=== PATIENT | male | born 1945 | race Caucasian/White ===

== ENCOUNTER → 2019-04-29 10:29 | Outpatient (BNVA) | payer BC, SELFPAY | PROVIDERS: Family Provider Family Medicine; PCP Family Medicine; Visit Provider Family Medicine | DX: Z01.818 Encounter for other preprocedural examination (principal) | CPT/HCPCS: 71046; 80053; 85025; 87070 ==

== ENCOUNTER → 2019-05-15 13:45 | Outpatient (BNVA) | payer BC, SELFPAY | PROVIDERS: Family Provider Family Medicine; PCP Family Medicine; Visit Provider Anesthesiology | DX: M48.061 Spinal stenosis, lumbar region without neurogenic claudication (principal); M47.24 Other spondylosis with radiculopathy, thoracic region; M51.34 Other intervertebral disc degeneration, thoracic region; M96.1 Postlaminectomy syndrome, not elsewhere classified; Z79.891 Long term (current) use of opiate analgesic | CPT/HCPCS: 99214 ==

== ENCOUNTER → 2019-06-24 13:55 | Outpatient (BNVA) | payer BC, SELFPAY | PROVIDERS: Family Provider Family Medicine; PCP Family Medicine; Visit Provider Nurse Practitioner | DX: M48.061 Spinal stenosis, lumbar region without neurogenic claudication (principal); M54.9 Dorsalgia, unspecified; Z79.891 Long term (current) use of opiate analgesic | CPT/HCPCS: 99215 ==

== ENCOUNTER → 2019-07-22 10:45 | Outpatient (BNVA) | payer BC, SELFPAY | PROVIDERS: Family Provider Family Medicine; PCP Family Medicine; Visit Provider Anesthesiology | DX: M48.061 Spinal stenosis, lumbar region without neurogenic claudication (principal); M51.34 Other intervertebral disc degeneration, thoracic region; M47.24 Other spondylosis with radiculopathy, thoracic region; M96.1 Postlaminectomy syndrome, not elsewhere classified; Z79.891 Long term (current) use of opiate analgesic | CPT/HCPCS: 99214 ==

== ENCOUNTER 2019-08-05 06:00 | Outpatient (RCR) | payer BC, SELFPAY | END 2019-08-20 23:59 | disposition home or self-care (01) | LOC: GPT 06:00 | PROVIDERS: Family Provider Family Medicine; PCP Family Medicine; Referring Provider Family Medicine; Visit Provider Family Medicine | DX: M54.5 Low back pain (principal) | CPT/HCPCS: 97032; 97110; 97140; 97161; 97530 ==

== ENCOUNTER 2019-08-21 06:00 | Outpatient (RCR) | payer BC, SELFPAY | END 2019-09-20 23:59 | disposition home or self-care (01) | LOC: GPT 06:00 | PROVIDERS: Family Provider Family Medicine; PCP Family Medicine; Referring Provider Family Medicine; Visit Provider Family Medicine | DX: M54.5 Low back pain (principal) | CPT/HCPCS: 97110; 97112; 97140 ==

== ENCOUNTER → 2020-05-20 16:43 | Outpatient (BNVA) | payer BC, SELFPAY | PROVIDERS: PCP Family Medicine; Visit Provider Nurse Practitioner Family | DX: Z20.828 Contact with and (suspected) exposure to other viral communicable diseases (principal) | CPT/HCPCS: 87635 ==

== ENCOUNTER → 2020-10-07 08:45 | Outpatient (BNVA) | payer BC, SELFPAY | PROVIDERS: PCP Family Medicine; Visit Provider Nurse Practitioner Family | DX: N40.1 Benign prostatic hyperplasia with lower urinary tract symptoms (principal) | CPT/HCPCS: 84153 ==

== ENCOUNTER → 2020-10-20 07:53 | Outpatient (BNVA) | payer BC, SELFPAY | PROVIDERS: PCP Family Medicine; Visit Provider Family Medicine | DX: B18.2 Chronic viral hepatitis C (principal); I10 Essential (primary) hypertension; M47.24 Other spondylosis with radiculopathy, thoracic region; N40.0 Benign prostatic hyperplasia without lower urinary tract symptoms | CPT/HCPCS: 80053; 80061; 84439; 84443; 85025 ==

== ENCOUNTER → 2021-10-06 09:33 | Outpatient (BNVA) | payer BC, SELFPAY | PROVIDERS: PCP Family Medicine; Visit Provider Dermatology | DX: N40.0 Benign prostatic hyperplasia without lower urinary tract symptoms (principal) | CPT/HCPCS: 84153 ==

== ENCOUNTER → 2021-12-01 08:49 | Outpatient (BNVA) | payer BC, SELFPAY | PROVIDERS: PCP Family Medicine; Visit Provider Nurse Practitioner Family | DX: I10 Essential (primary) hypertension (principal); N40.0 Benign prostatic hyperplasia without lower urinary tract symptoms | CPT/HCPCS: 80053; 80061; 84153; 84443; 85025 ==

== ENCOUNTER → 2022-09-20 11:04 | Outpatient (BNVA) | payer OTHER, SELFPAY | PROVIDERS: PCP Family Medicine; Visit Provider Nurse Practitioner Family | DX: I10 Essential (primary) hypertension (principal); N52.9 Male erectile dysfunction, unspecified; Z68.27 Body mass index [BMI] 27.0-27.9, adult | CPT/HCPCS: 80053; 80061 ==

== ENCOUNTER → 2022-10-02 13:50 | Outpatient (BNVA) | payer OTHER, SELFPAY | PROVIDERS: PCP Family Medicine; Visit Provider Dermatology | DX: Z01.89 Encounter for other specified special examinations (principal) ==

== ENCOUNTER → 2022-10-11 13:30 | Outpatient (BNVA) | payer OTHER, SELFPAY | PROVIDERS: PCP Family Medicine; Visit Provider Nurse Practitioner Family | DX: N23 Unspecified renal colic (principal) | CPT/HCPCS: 81000 ==

== ENCOUNTER 2022-11-10 22:32 | Emergency (ER) | payer OTHER, SELFPAY ==
[2022-11-10 22:43] VITALS: BP 187/82; PULSE 69; RESP 18; TEMP 36.6; O2SAT 98; BMI 27.1
--- NOTE | 2022-11-10 22:56 | W.ED.ANIMALB ---
HPI - Animal Bite General: Chief Complaint: Animal Bite Stated Complaint: LAC on Foot Time Seen by Provider: 11/10/22 22:35 History of Present Illness: 77-year-old male patient comes in today for complaints of injury to the right foot. Patient was walking across the floor when the dog accidentally bit him on the top of the right foot after he excellently stepped on the dog. Patient appears nontoxic. Patient reports the animals that shots are up-to-date. Patient has a V-shaped laceration to the dorsal right foot approximately 3 cm. Review of Systems General: Reports: 10 or more systems reviewed and unremarkable except in HPI and below Musc: Reports: extremity pain Skin/Breast: Reports: new lesions PFS ED PFSH: Medical History BPH (benign prostatic hyperplasia) Chronic cholecystitis with calculus Chronic hepatitis C Encounter for long-term opiate analgesic use History of nonmelanoma skin cancer Hypertension Lumbar postlaminectomy syndrome Lumbar stenosis Opioid contract exists Preop examination Thoracic degenerative disc disease Thoracic radiculopathy due to degenerative joint disease of spine Surgical History History of lumbar fusion has had 2 lumbar surgeries Social History Smoking and tobacco status: former smoker Quit status (tobacco): has quit using tobacco Year quit tobacco: 2004 Alcohol intake: never Physical Exam Const: COMMON NORMALS: alert HENMT: COMMON NORMALS: normocephalic HEAD & SCALP: normocephalic Neck/C-Spine: COMMON NORMALS: full ROM Resp: COMMON NORMALS: normal respiratory effort Cardio: COMMON NORMALS: regular rate RATE: regular rate Back/Pelvis: COMMON NORMALS: thoracic and lumbar spine normal to inspection Extremity: RIGHT LOWER EXTREMITY: Yes foot & digits (3 cm laceration dorsal right foot. Contused wound) Right foot and digits: Yes inspection, Yes palpation, Yes ROM and Yes neurovascular exam Neuro: SENSORIUM/ORIENTATION: Yes alert Skin: TRAUMA: laceration (Dorsal right foot) L-shaped Procedures Laceration Laceration 1: Site: lower extremity Side (If applicable): right Size (cm): 3 Description: linear Depth: simple, single layer Local Anesthetic: lidocaine 1% Amount of anesthesia used (mL): 3 Pre-repair: wound explored and irrigated extensively Skin layer closed with: nylon Size (cm): 4-0 Number of sutures: 5 Course Vital Signs: Vital signs: Vital Signs Temperature 98 F 11/10/22 22:43 Pulse Rate 69 11/10/22 22:43 Respiratory Rate 18 11/10/22 22:43 Blood Pressure 187/82 11/10/22 22:43 Pulse Oximetry 98 11/10/22 22:43 MDM - Animal Bite Medical Decision Making 77-year-old male patient comes in with injury to the dorsal right foot. On exam patient has a 3 cm laceration to the dorsal right foot. Patient has some surrounding contusion to the injury. Cap refill is intact distally. Dorsal pedis pulses intact. Differential diagnosis includes fracture, foreign body, laceration, contusion. Examination of the laceration noted no fracture or foreign body to the foot. Wound was irrigated thoroughly and closed with nylon sutures #5. Patient will be covered with Augmentin for infection. Patient was written a prescription for some pain medication. Patient was recommended to elevate foot is much as possible for the next 2 days and keep wound clean and dry. Patient stated understanding and agreed to plan. Discharge Plan Discharge Patient Disposition: Home Clinical Impression: Dog bite Qualifiers: Encounter type: initial encounter Qualified Code(s): W54.0XXA - Bitten by dog, initial encounter Laceration of foot Qualifiers: Encounter type: initial encounter Laterality: right Qualified Code(s): S91.311A - Laceration without foreign body, right foot, initial encounter Condition: Stable Prescriptions: New amoxicillin-pot clavulanate 875-125 mg tablet 1 tab PO BID Qty: 20 0RF hydrocodone-acetaminophen 5-325 mg tablet 1 tab PO Q6H PRN (Reason: pain) Qty: 7 0RF No Action amlodipine [Norvasc] 10 mg tablet 10 mg PO QDAY Qty: 90 3RF sildenafil [Viagra] 100 mg tablet 100 mg PO .every 2-3 days PRN (Reason: sexual activity) Qty: 60 4RF benazepril 40 mg tablet 40 mg PO QDAY Qty: 90 3RF fluticasone propionate 50 mcg/actuation spray,suspension See Rx Instructions .ROUTE .COMPLEX Qty: 48 3RF Dose Instruction: USE 1 SPRAY(S) IN EACH NOSTRIL EVERY 12 HOURS Rx Instructions: USE 1 SPRAY(S) IN EACH NOSTRIL EVERY 12 HOURS meloxicam 15 mg tablet See Rx Instructions .ROUTE .COMPLEX Qty: 90 0RF Dose Instruction: Take 1 tablet by mouth once daily Rx Instructions: Take 1 tablet by mouth once daily nystatin 100,000 unit/gram powder 1 applic topical TID Qty: 60 1RF valacyclovir 1 gram tablet See Rx Instructions .ROUTE .COMPLEX Qty: 90 3RF Rx Instructions: take one tablet q12 hour x 10 days, then one tab daily.; fluconazole [Diflucan] 150 mg tablet 150 mg PO Q3D Qty: 2 0RF Discharge Orders: Discharge ED (Routine); Ordered 11/10/22 Ordered By: Ferny Seals Referrals: Alfonso Schuster DO [Primary Care Provider] - Discharge Diet: Usual diet Discharge Activity: Increase activity as tolerated Patient Instructions: Laceration (ED) Activity Restrictions/Additional Instructions: Keep wound clean and dry. Is important keep the wound as dry as possible for the next 48 hours. Use acetaminophen and ibuprofen for pain. Use hydrocodone for severe pain. Increase activity as tolerated. Sutures need to come out in 7 to 10 days. Follow-up with primary care for further instructions. Return to ED for new concerns. Coding Level of Care Code ED Renewable Energy Technician for Dali Brennan
[2022-11-10] MEDS: HYDROcodone-acetaminophen 7.5-325 mg Tablet 1 TAB PO (23:39)
[2022-11-10] MEDS: amoxicillin-clav 875-125 mg Tablet 1 TAB PO (23:39)
== END 2022-11-10 23:57 | disposition home or self-care (01) ==
PROVIDERS: Emergency Provider Nurse Practitioner Family; PCP Family Medicine
DX: S91.351A Open bite, right foot, initial encounter (principal); W54.0XXA Bitten by dog, initial encounter; Z86.19 Personal history of other infectious and parasitic diseases; I10 Essential (primary) hypertension; Z87.891 Personal history of nicotine dependence
CPT/HCPCS: 12002; 99283

== ENCOUNTER → 2024-11-27 12:50 | Outpatient (BNVA) | payer OTHER, SELFPAY | PROVIDERS: PCP Nurse Practitioner Family; Visit Provider Nurse Practitioner Family | DX: R53.83 Other fatigue (principal); E87.1 Hypo-osmolality and hyponatremia | CPT/HCPCS: 80048; 84443 ==

== ENCOUNTER 2024-12-04 16:13 | Emergency (ER) | payer OTHER, SELFPAY ==
[2024-12-04 16:37] VITALS: BP 146/75; PULSE 76; RESP 19; TEMP 36.7; O2SAT 96
--- NOTE | 2024-12-04 16:40 | ECG_ITS ---
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 Measurements Intervals [place] Rate: 73 P: 60 MA: 180 QRS: 31 QRSD: 89 T: 56 QT: 359 QTc: 398 Interpretive Statements SINUS RHYTHM WITH OCCASIONAL SUPRAVENTRICULAR PREMATURE COMPLEXES Compared to ECG 11/01/2015 09:42:22 Ventricular premature complex(es) no longer present Electronically Signed On 12-05-2024 21:24:43 CDT by Tod Marie M.D. [id number]
--- NOTE | 2024-12-04 19:05 | W.ED.ARRPALP ---
HPI - Arrhythmia/Palpitations General: Chief Complaint: Arrhythmia/Palpitations Stated Complaint: Low heart rate Time Seen by Provider: 12/04/24 19:05 History of Present Illness: Patient presents to the emergency department after being referred by Dr. Schuster's MOLDER [facility]TING following an abnormal EKG showing heart block . The patient reports a 3-4 week history of episodic weakness and 'fits' that typically begin after being up for a couple of hours in the morning. These episodes are characterized by feeling weak and tired, with internal shakiness. The patient also experiences intermittent shortness of breath, dizziness, and feeling 'spacey.' The patient denies syncope or near-syncope episodes. During today's primary care visit at approximately 1:30 PM, an EKG was performed which showed concerning findings that caused the MOLDER FITTING to be concerned due to the low pulse rate and evidence of heart block, prompting immediate referral to the emergency department. The patient has never experienced these symptoms previously and reports always having had a somewhat low heart rate but nothing like the current presentation. An EKG performed upon arrival to the ED was reportedly normal compared to the concerning office EKG. Related Data Previous Rx's ?Medication ?Instructions ?Recorded sildenafil 100 mg tablet (Viagra) 100 mg PO .every 2-3 days PRN 10/08/23 sexual activity #60 tabs meloxicam 15 mg tablet See Rx Instructions .Route 08/07/24 .COMPLEX #90 tabs doxycycline hyclate 100 mg tablet 100 mg PO BID 7 days #14 tabs 11/24/24 amlodipine 10 mg tablet See Rx Instructions .Route 11/27/24 .COMPLEX #90 tabs azelastine 205.5 mcg (0.15 %) 1 spray intranasal BID #90 mL 11/27/24 nasal spray (Astepro Allergy) benazepril 40 mg tablet See Rx Instructions .Route 11/27/24 .COMPLEX #90 tabs famotidine 10 mg tablet 10 mg PO BID #180 tabs 11/27/24 fluticasone propionate 50 See Rx Instructions .Route 11/27/24 mcg/actuation nasal .COMPLEX 90 days #48 grams spray,suspension valacyclovir 1 gram tablet See Rx Instructions .Route 11/27/24 .COMPLEX #90 tabs Allergies Allergy/AdvReac Type Severity Reaction Status Date / Time No Known Allergies Allergy Verified 11/27/24 12:11 PFSH ED PFSH: Medical History History of nonmelanoma skin cancer Chronic cholecystitis with calculus Encounter for long-term opiate analgesic use Thoracic degenerative disc disease Lumbar postlaminectomy syndrome Opioid contract exists Preop examination Chronic hepatitis C Lumbar stenosis Hypertension BPH (benign prostatic hyperplasia) Thoracic radiculopathy due to degenerative joint disease of spine Surgical History History of lumbar fusion has had 2 lumbar surgeries Social History Smoking and tobacco/nicotine status: never used tobacco/nicotine Quit status (tobacco/nicotine): has quit using Year quit tobacco: 2004 Alcohol intake: never Physical Exam Const: COMMON NORMALS: no acute distress GENERAL APPEARANCE: cooperative; not ill appearing and not frail appearing HENMT: COMMON NORMALS: normocephalic, atraumatic and Normal external nose present HEAD & SCALP: normocephalic and atraumatic FACE & SINUS: normal facial exam and face symmetric NOSE: Normal external nose present Eye: COMMON NORMALS: Equal, round and reactive pupils present and EOMs intact bilaterally PUPIL: Yes Equal, round and reactive pupils present Neck/C-Spine: GENERAL: Yes trachea midline Chest: CHEST: Yes Symmetrical chest wall rise Resp: COMMON NORMALS: normal respiratory effort, No retractions, No use of accessory muscles and clear to auscultation bilaterally AUSCULTATION: clear to auscultation bilaterally Cardio: COMMON NORMALS: regular rate and regular rhythm RATE: regular rate RHYTHM: regular rhythm GI: COMMON NORMALS: Normal to inspection, nondistended, normoactive bowel sounds present Extremity: COMMON NORMALS: no pedal edema Neuro: SALAZAR COMA SCALE: document GCS findings Franklin coma scale eye opening: Spontaneous Salazar coma scale verbal response: Orientated Salazar coma scale motor response: Obey commands Franklin coma scale total score: 15 SENSORY EXAM: Yes extremities (intact) Psych: COMMON NORMALS: speech normal SPEECH: Yes normal speech Skin: COMMON NORMALS: no rashes or lesions noted GENERAL SKIN EXAM: no rashes or lesions noted Course Vital Signs: Vital signs: Vital Signs Temperature 98.0 F 12/04/24 16:37 Pulse Rate 66 12/04/24 22:46 Respiratory Rate 16 12/04/24 21:00 Blood Pressure 159/75 12/04/24 22:46 Pulse Oximetry 96 12/04/24 22:46 Oxygen Delivery Me thod Room Air 12/04/24 21:00 MDM - Arrhythmia/Palpitations Medical Decision Making 79-year-old male with episodic bouts of fatigue, lack of energy, dizziness, that seem to come and go. Concerning findings in outpatient on EKG. It is not available for our review here in the ER. ER EKG shows sinus rhythm initially with a rate of 70, 2 hours rate of 60. No evidence of heart block. DE interval is normal as is QRS. Chest x-ray is nonacute. BNP is 171. Delta troponin is 2. TSH is 1.9. BMP is normal. The patient is asymptomatic at this point. I believe an outpatient Holter monitor would be the most possible next step. 1 has been ordered for him through case management. Outpatient follow-up. Return for new or worsening symptoms Lab Data 12/04/24 19:33 12/04/24 20:26 Radiology Impressions Chest X-Ray 12/04/24 19:06 IMPRESSION: No acute findings. Laboratory Results WBC 6.67 10^3/uL (3.29-11.43) 12/04/24 19:33 RBC 4.46 10^6/uL (3.85-5.65) 12/04/24 19:33 Hgb 14.50 g/dL (11.27-16.99) 12/04/24 19:33 Hct 42.0 % (37-53) 12/04/24 19:33 MCV 94.2 fl (82-101) 12/04/24 19:33 MCH 32.5 pg (27-33) 12/04/24 19:33 MCHC 34.5 g/dL (30-55) 12/04/24 19:33 RDW 12.9 % (12.1-15.1) 12/04/24 19:33 Plt Count 219 10^3/cmm (157-399) 12/04/24 19:33 MPV 9.9 fL (7.4-10.4) 12/04/24 19:33 Neut % (Auto) 54.2 % 12/04/24 19:33 Lymph % (Auto) 32.7 % 12/04/24 19:33 Mineral % (Auto) 10.0 % 12/04/24 19:33 Eos % (Auto) 1.9 % 12/04/24 19: Baso % (Auto) 0.9 % 12/04/24 19:33 Neut # (Auto) 3.61 10^3/uL (1.8-7.7) 12/04/24 19:33 Lymph # (Auto) 2.2 10^3/uL (0.8-4.8) 12/04/24 19:33 Mineral # (Auto) 0.7 10^3/uL (0.2-0.9) 12/04/24 19: Eos # (Auto) 0.1 10^3/uL (0.0-0.8) 12/04/24: Baso # (Auto) 0.1 10^3/uL (0.0-0.1) 12/04/24 19: Nucleated RBC % (auto) 0 % 12/04/24: Nucleated RBCs # 0.0 /100WBC 12/04/24 19: Sodium 136 mmol/L (136-145) 12/04/24 20: Potassium 4.2 mmol/L (3.5-5.1) 12/04/24 20: Chloride 99 mmol/L (98-107) 12/04/24 20: Carbon Dioxide 24 mmol/L (22-29) 12/04/24 20: Anion Gap 17.2 (5-19) 12/04/24 20: BUN 18 mg/dL (8-23) 12/04/24 20: Creatinine 1.1 mg/dL (0.7-1.2) 12/04/24 20: GFR Calculation Not Reportable 12/04/24 20: Glucose 98 mg/dL (65-115) 12/04/24 20: Calculated Osmolality 284 mOsm/kg (285-295) L 12/04/24: Calcium 9.2 mg/dL (8.5-10.5) 12/04/24 20: Magnesium 2.4 mg/dL (1.7-2.3) H 12/04/24 20: Total Bilirubin 0.4 mg/dL (0.15-1.2) 12/04/24 20:26 AST 25 U/L (0-40) 12/04/24 20: ALT 29 U/L (0-41) 12/04/24 20:26 Alkaline Phosphatase 86 U/L (40-130) 12/04/24 20:26 Creatine Kinase 106 U/L (39-308) 12/04/24 20:26 Troponin T Baseline 10 ng/L (0-15) 12/04/24 19:33 Troponin T 120 Minute 12.27 ng/L (0-15) 12/04/24 21:33 Delta Troponin T 2.27 ABS# (0-10) 12/04/24 21:33 NT-Pro-B Natriuret Pep 171 pg/mL (0-450) 12/04/24 20: Total Protein 7.3 g/dL (6.6-8.7) 12/04/24 20: Albumin 4.7 g/dL (3.5-5.2) 12/04/24 20: Globulin 2.6 g/dL (1.3-4.6) 12/04/24 20: TSH 1.88 uIU/mL (0.27-4.20) 12/04/24 20:26 All radiology interpretation(s) finalized by discharge Discharge Plan Discharge Patient Disposition: Home Clinical Impression: Fatigue Condition: Stable Prescriptions: No Action sildenafil [Viagra] 100 mg tablet 100 mg PO .every 2-3 days PRN (Reason: sexual activity) Qty: 60 4RF amlodipine 10 mg tablet See Rx Instructions .ROUTE .COMPLEX Qty: 90 3RF Dose Instruction: Take 1 tablet by mouth once daily Rx Instructions: Take 1 tablet by mouth once daily benazepril 40 mg tablet See Rx Instructions .ROUTE .COMPLEX Qty: 90 3RF Dose Instruction: Take 1 tablet by mouth once daily Rx Instructions: Take 1 tablet by mouth once daily azelastine [Astepro Allergy] 205.5 mcg (0.15 %) spray,non-aerosol 1 spray intranasal BID Qty: 90 3RF Rx Instructions: administer into each nostril valacyclovir 1 gram tablet See Rx Instructions .ROUTE .COMPLEX Qty: 90 3RF Dose Instruction: Take 1 tablet by mouth once daily Rx Instructions: Take 1 tablet by mouth once daily fluticasone propionate 50 mcg/actuation spray,suspension See Rx Instructions .ROUTE .COMPLEX 90 Days Qty: 48 3RF Dose Instruction: Use 2 spray(s) in each nostril once daily Rx Instructions: Use 2 spray(s) in each nostril once daily famotidine 10 mg tablet 10 mg PO BID Qty: 180 1RF doxycycline hyclate 100 mg tablet 100 mg PO BID 7 Days Qty: 14 0RF meloxicam 15 mg tablet See Rx Instructions .ROUTE .COMPLEX Qty: 90 0RF Dose Instruction: Take 1 tablet by mouth once daily Rx Instructions: Take 1 tablet by mouth once daily Discharge Orders: Discharge ED (Routine); Ordered 12/04/24 Ordered By: Lucas Schwartz Referrals: Jolie Trevino NP [Primary Care Provider, Family Practice] - 4-7 days Patient Instructions: Weakness (ED), Fatigue (ED), Opioid Safety, Pain Management, Patient Portal & Reid Instructions Activity Restrictions/Additional Instructions: Return to the emergency department for development of chest discomfort, shortness of breath, fever, mental status changes, or other concerning symptoms. Follow-up with your doctor next week. You should get a call from our case management team regarding set up for a Holter monitor early next week. If you do not, call [phone] and ask for the case management social worker during normal business hours. Print Language: Lithuanian Coding Level of Care Code ED [employer] Laboratory Worker for Dali Brennan
--- NOTE | 2024-12-04 19:06 | XRR_ITS ---
PROCEDURE INFORMATION: Exam: XR Chest Exam date and time: 12/04/2024 7:19 PM Age: 79 years old Clinical indication: Other: Weakness TECHNIQUE: Imaging protocol: Radiologic exam of the chest. Views: 1 view. COMPARISON: CR XR chest 2V* [id number] 04/29/2019 10:49 AM FINDINGS: Lungs: Unremarkable. No consolidation. Pleural spaces: Unremarkable. No pleural effusion. No pneumothorax. Heart/Mediastinum: Unremarkable. No cardiomegaly. Bones/joints: Unremarkable. XR/XR chest 1V portable [id number] IMPRESSION: No acute findings.
[2024-12-04 19:39] VITALS: BP 185/88; PULSE 59; O2SAT 98
[2024-12-04 19:42] LABS: Hematocrit 42.0 % (37-53); Hemoglobin 14.50 g/dL (11.27-16.99); Mean Corpuscular HGB Conc 34.5 g/dL (30-55); Mean Corpuscular Hemoglobin 32.5 pg (27-33); Mean Corpuscular Volume 94.2 fl (82-101); Nucleated Red Blood Cells % 0 %; Platelet Count 219 10^3/cmm (157-399); Red Blood Count 4.46 10^6/uL (3.85-5.65); White Blood Count 6.67 10^3/uL (3.29-11.43)
[2024-12-04 20:00] VITALS: BP 156/91; PULSE 61; RESP 22; O2SAT 97
[2024-12-04 20:16] LABS: Troponin(5th) Baseline 10 ng/L (0-15)
[2024-12-04 20:47] VITALS: BP 156/91; PULSE 67; RESP 15; O2SAT 95
[2024-12-04 21:00] VITALS: BP 165/88; PULSE 67; RESP 16; O2SAT 96
[2024-12-04 21:27] LABS: Alanine Aminotransferase 29 U/L (0-41); Albumin Level 4.7 g/dL (3.5-5.2); Alkaline Phosphatase 86 U/L (40-130); Anion Gap 17.2 (5-19); Aspartate Amino Transferase 25 U/L (0-40); Blood Urea Nitrogen 18 mg/dL (8-23); Calcium 9.2 mg/dL (8.5-10.5); Carbon Dioxide 24 mmol/L (22-29); Chloride 99 mmol/L (98-107); Creatinine Clr Calc Pharmacy 64.4582; Globulin 2.6 g/dL (1.3-4.6); Glucose 98 mg/dL (65-115); NT Pro B Type Natriuretic Pept 171 pg/mL (0-450); Potassium 4.2 mmol/L (3.5-5.1); Sodium 136 mmol/L (136-145); Thyroid Stimulating Hormone 1.88 uIU/mL (0.27-4.20); Total Protein 7.3 g/dL (6.6-8.7)
[2024-12-04 21:37] LABS: Magnesium 2.4 mg/dL (1.7-2.3)
[2024-12-04 21:43] LABS: Osmolality Calculated 284 mOsm/kg (285-295)
--- NOTE | 2024-12-04 21:48 | ECG_ITS ---
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 Measurements Intervals [place] Rate: 61 P: 45 FL: 196 QRS: 10 QRSD: 94 T: 51 QT: 408 QTc: 411 Interpretive Statements SINUS RHYTHM LOW QRS VOLTAGE IN PRECORDIAL LEADS [QRS DEFLECTION < 1.0 mV IN CHEST LEADS] Compared to ECG 12/04/2024 16:40:40 NO SIGNIFICANT CHANGE Electronically Signed On 12-06-2024 17:15:39 CDT by Tod Marie M.D. [id number]
[2024-12-04 22:03] LABS: Troponin 5 2HR 12.27 ng/L (0-15); Troponin 5 2HR Delta 2.27 ABS# (0-10)
[2024-12-04 22:46] VITALS: BP 159/75; PULSE 66; O2SAT 96
--- NOTE | 2024-12-08 08:51 | DCPLANNER ---
Sent Message to Cardiology for Holter Monitor
== END 2024-12-04 22:48 | disposition home or self-care (01) ==
PROVIDERS: Emergency Provider Emergency Medicine; PCP Nurse Practitioner Family
DX: R42 Dizziness and giddiness (principal); R53.83 Other fatigue; R53.1 Weakness; Z87.891 Personal history of nicotine dependence; I10 Essential (primary) hypertension
CPT/HCPCS: 36415; 71045; 80053; 82306; 82550; 82607; 83735; 83880; 84403; 84443; 84484; 85025; 85651; 86140; 86160; 86618; 86666; 86668; 86757; 93005; 99285

== ENCOUNTER → 2025-01-11 12:18 | Outpatient (BNVA) | payer OTHER, SELFPAY | PROVIDERS: PCP Nurse Practitioner Family | DX: R39.9 Unspecified symptoms and signs involving the genitourinary system (principal) | CPT/HCPCS: 81000 ==